=== PATIENT | female | born 1950 | race Caucasian/White ===

== ENCOUNTER → 2017-10-27 | Outpatient (CLI) | payer MEDICARE ==
[~2017-10-27] MED LIST: ASPIRIN 81M81 MG/TA2 PO; BETIMOL 0.5% OPH5 ML OP; CALCIUM600 M1 PO; COUMADIN 1MG1 MG/TAB PO; FOLIC ACID 11 MG/TA1 PO; FOSAMAX 35MG35 MG PO; HUMIRA40 MG/0.1 SC; LASIX 20MG TABL20 MG PO; LIPITOR20 MG PO; LOVENOX 3030 MG/0.3 SQ; METHOTREXA2.5 MG/TAB PO; MOTRIN 800800 MG/TAB PO; PREVACID SOLUTA30 M2 PO; TENORMIN 2525 MG/TAB PO; XALATAN EYE DROPS OU
== END ==
LOC: MHCPAIN 12:50
DX: G89.29 Other chronic pain (principal); M47.27 Other spondylosis with radiculopathy, lumbosacral region; M53.3 Sacrococcygeal disorders, not elsewhere classified; M41.9 Scoliosis, unspecified; F17.210 Nicotine dependence, cigarettes, uncomplicated
CPT/HCPCS: G0463

== ENCOUNTER → 2018-02-01 | Outpatient (CLI) | payer MEDICARE | LOC: MHCPAIN 13:54 | DX: G89.29 Other chronic pain (principal); M47.817 Spondylosis without myelopathy or radiculopathy, lumbosacral region; M41.9 Scoliosis, unspecified | CPT/HCPCS: G0463 ==

== ENCOUNTER 2022-01-28 11:46 | Inpatient (IN) | payer MEDICARE ==
[2022-01-28] VITALS (358 sets, daily range): BP systolic 99–154; BP diastolic 41–67; PULSE 68–85; TEMP 97.5–98.5; O2SAT 76–100
[~2022-01-28] VITALS: Ht 147.3 cm; Wt 47.6 kg
[2022-01-28 13:20] LABS: COLLECTION METHOD CLEAN CATCH
[2022-01-28 13:23] LABS: MEAN CELL VOLUME 90 fl (80.0-100.0); MEAN CORPUSCULAR HGB CONC 30 g/dl (33.0-37.0); MEAN PLATELET VOLUME 10.5 fl (7.4-10.4); PLATELET COUNT 299 K/mm3 (130-400); RED BLOOD COUNT 2.14 M/mm3 (4.10-5.30); REDCELL DISTRIBUTION WIDTH-CV 15.9 % (11.5-14.5)
[2022-01-28 13:30] LABS: HEMATOCRIT 19.2 % (37.0-47.0); MEAN CORPUSCULAR HEMOGLOBIN 27 pg (27-31)
[2022-01-28 13:31] LABS: HEMOGLOBIN 5.8 g/dl (12.5-16.0)
[2022-01-28 13:32] LABS: MUCOUS Present (NOT PRESENT); PH 7 (5-8); SQUAMOUS EPITHELIAL 0-2 /hpf (0-10); URINE APPEARANCE Hazy (CLEAR/HAZY); URINE BACTERIA Rare /hpf (NONE SEEN); URINE BILIRUBIN Negative (NEGATIVE); URINE BLOOD 2+ (NEGATIVE); URINE COLOR Yellow (YELLOW); URINE GLUCOSE Negative (NEGATIVE); URINE KETONE Negative (NEGATIVE); URINE LEUKOCYTE ESTERASE 3+ (NEGATIVE); URINE NITRATE Negative (NEGATIVE); URINE PROTEIN(semi-quant) Negative (NEGATIVE); URINE RBC None Seen /hpf (0-2); URINE UROBILINOGEN Negative (NEGATIVE)
[2022-01-28 13:39] LABS: BILIRUBIN,TOTAL 0.7 mg/dL (0.2-1.2); C-REACTIVE PROTEIN 0.76 mg/dL (0.00-0.50); CALCIUM 8.8 mg/dL (8.4-10.2); CREATININE, serum 1.01 mg/dL (0.57-1.11); POTASSIUM 4.3 mmol/L (3.5-4.5); PROTHROMBIN TIME 81.4 SECONDS (9.7-12.8); TOTAL PROTEIN 6.3 gm/dL (6.2-8.1)
[2022-01-28 13:40] LABS: INR 7.2 (0.8-3.0)
[2022-01-28 13:49] LABS: BAND 3 % (0-10); EOSINOPHIL 4 % (0-4); HYPOCHROMIA 3+; LYMPHOCYTE 14 % (20.0-51.0); METAMYELOCYTE 1 % (0-0); NEUTROPHILS 73 % (42.0-75.2)
[2022-01-28 13:50] LABS: MICROCYTOSIS 1+; PLATELET ESTIMATE NORMAL (NORMAL); SCHISTOCYTES 1+
--- NOTE | 2022-01-28 17:00 | NUR ---
PT ARRIVES TO ICU6 AT THIS TIME FROM ED VIA BED. PT CURRENTLY HAS BLOOD TRANSFUSING AT THIS TIME. PICC LINE TO RIGHT UPPER ARM. FC INSERTED. PT ALERT AND ORIENTED. VERY HARD OF HEARING. STATES SHE DOES NOT HAVE ANY PAIN AT THIS TIME.
[2022-01-28] MEDS ORDERED: CARAFATE 1GM1 G PO (17:16)
[2022-01-28] MEDS ORDERED: NORVASC 5MG5 MG/TAB PO (17:17)
[2022-01-28] MEDS ORDERED: FOLIC ACID 11 MG/TA1 PO (17:17)
[2022-01-28] MEDS ORDERED: LASIX 20MG TABL20 MG PO (17:18)
[2022-01-28] MEDS ORDERED: LANOXIN 0.120.125 MG PO (17:19)
[2022-01-28] MEDS ORDERED: PRILOTC PO (17:20)
[2022-01-28] MEDS ORDERED: PRILOTC (17:21)
[2022-01-28] MEDS ORDERED: RINVOQ ER15 MG PO (17:22)
[2022-01-28] MEDS ORDERED: COMBIGAN 0.2%-0.5 ML OU ×2 (17:24→17:25)
[2022-01-28] MEDS ORDERED: SYSTANE 0.3-0.1 EACH OP (17:26)
[2022-01-28] MEDS ORDERED: PREDNISONE 5MG5 MG PO (17:27)
[2022-01-28 20:13] LABS: HEMATOCRIT 24.1 % (37.0-47.0); HEMOGLOBIN 7.4 g/dl (12.5-16.0)
--- NOTE | 2022-01-28 20:14 | NUR ---
Patient's caregiver Lucrecia called for update, verified with patient this was ok to give her also verified with patient that she was ok with giving animal caretaker 4 digit code, patient stated yes to both.
[2022-01-29] VITALS (1335 sets, daily range): BP systolic 114–154; BP diastolic 46–72; PULSE 61–84; TEMP 97.4–98; O2SAT 49–100
[2022-01-29 01:25] LABS: HEMATOCRIT 30.4 % (37.0-47.0)
[2022-01-29 01:26] LABS: HEMOGLOBIN 9.5 g/dl (12.5-16.0)
[2022-01-29 06:09] LABS: HEMATOCRIT 31.6 % (37.0-47.0); HEMOGLOBIN 9.8 g/dl (12.5-16.0)
[2022-01-29 06:21] LABS: PROTHROMBIN TIME 11.5 SECONDS (9.7-12.8)
[2022-01-29 06:37] LABS: CALCIUM 7.8 mg/dL (8.4-10.2); CREATININE, serum 0.73 mg/dL (0.57-1.11); POTASSIUM 4.2 mmol/L (3.5-4.5)
--- NOTE | 2022-01-29 09:53 | NUR ---
DINORA and DINORA valderrama met with the patient and her caregiver/roommate, Lucrecia Shelton (ph#[phone]), to discuss discharge plan. The patient lives in [place] with Lucrecia. Lucrecia has been taking care of the patient for 16 years. Lucrecia states that the patient needs some assistance with bathing and that she has a cane, walker, wheelchair, and has a home [employer] for oxygen. She primarily uses the walker and Lucrecia states that she assists the patient with bathing. The patient's PCP is Dr. Carmine Kemp and she receives her medications from [facility] in [place]. The patient does not have a DPOA-HC, but the patient states that she would like to complete one while here. The patient verbalized that a DPOA-HC means a person will make decisions for her when she cannot. She verbalized that she wants to designate both her son, Edgard, and caregiver, Lucrecia. She states that she wants them to have to "argue it about her care". Lucrecia used to date Edgard. DINORA and Evaristo, DINORA student, witnessed the patient's signature. DINORA valderrama provided the patient with the original and some copies. DINORA placed a copy in the patient's chart. DINORA placed a copy in the patient's chart. DINORA inquired if the patient has any home health services. Lucrecia states that the patient does not right now, but she would be interested in getting services started back up upon discharge. She states that the patient used to have [facility] and they really like them. DINORA contacted and faxed a referral to Arnaldo at [facility]. Arnaldo states that they do not have OT at this time. Awaiting screen. DINORA contacted the patient's son, Edgard, to review and update him on the above. Edgard states that he will be up to the hospital later today. *Discharge plan: home with caregiver and home health*
--- NOTE | 2022-01-29 10:33 | NUR ---
PATIENT LAYING IN BED THIS MORNING. ONLY COMPLAINT IS SHE IS THIRST AND HUNGRY. PATIENT UNDERSTANDS NEED FOR NPO UNTIL AFTER EGD. PTS SON INTO VISIT AND MAKES PATEINT UPSET. PT SAYS SHE FEELS LIKE SHE HAD CHEST PAIN BUT WHEN SON LEFT IT WENT AWAY. PATIENT UNDERSTANDS NEEDING TO TELL THIS RN IF THE PAIN REOCCURS. PT IS EXTREMELY HARD OF HEARING. KIMBERLI, PT HAMMERSMITH HELPER, BROUGHT IN PATIENTS LEFT HEARING AID. PT IS NOW WEARING HEARING AIDS BIALETERAL AND DOES SEEM TO HEAR AND UNDERSTAND CONVERSATION EASIER.
[2022-01-29] MEDS ORDERED: FLEXERIL 1010 MG/TAB PO (11:36)
[2022-01-29] MEDS ORDERED: CALCIUM 600 MG1 EAC2 PO (11:39)
[2022-01-29] MEDS ORDERED: MURO 128 5% OPH15 ML OP (11:40)
[2022-01-29] MEDS ORDERED: K-DUR20 MEQ PO (11:41)
[2022-01-29] MEDS ORDERED: PROLIA60 MG/ML SQ (11:43)
--- NOTE | 2022-01-29 12:42 | NUR ---
The patient's son, Edgard, arrived to the hospital. DINORA met with Edgard and updated him on the patient's plan to return home with her caregiver and home health. Edgard in agreement to the plan. He states that there are times that the patient is at home alone when Lucrecia goes out and he is concerned for her during those times. DINORA encouraged Edgard to talk to the patient and Lucrecia to come up with a schedule on when Lucrecia would be gone. Edgard states that he lives right next door to the patient and could stay with her when Lucrecia is gone. DINORA informed him that when Lucrecia cannot be at home, there is the option of paying for private duty caregivers as well. Edgard verbalized understanding. Egdard was interested in getting the patient a life alert. DINORA provided him with a couple brochures to for life alerts. [facility] states that they are able to accept the patient for services.
[2022-01-30] VITALS (1316 sets, daily range): BP systolic 101–196; BP diastolic 44–85; PULSE 63–97; TEMP 97.5–99; O2SAT 60–100
[2022-01-30 04:49] LABS: MEAN CELL VOLUME 91 fl (80.0-100.0); MEAN CORPUSCULAR HGB CONC 31 g/dl (33.0-37.0); MEAN PLATELET VOLUME 10.7 fl (7.4-10.4); RED BLOOD COUNT 3.44 M/mm3 (4.10-5.30); REDCELL DISTRIBUTION WIDTH-CV 16.9 % (11.5-14.5)
[2022-01-30 04:51] LABS: HEMATOCRIT 31.4 % (37.0-47.0); HEMOGLOBIN 9.6 g/dl (12.5-16.0); MEAN CORPUSCULAR HEMOGLOBIN 28 pg (27-31); PLATELET COUNT 196 K/mm3 (130-400)
[2022-01-30 04:59] LABS: CALCIUM 7.6 mg/dL (8.4-10.2); CREATININE, serum 0.76 mg/dL (0.57-1.11); POTASSIUM 4.2 mmol/L (3.5-4.5)
[2022-01-30 05:06] LABS: PROTHROMBIN TIME 11.4 SECONDS (9.7-12.8)
[2022-01-30 05:31] LABS: BAND 5 % (0-10); EOSINOPHIL 1 % (0-4); NEUTROPHILS 93 % (42.0-75.2); NUCLEATED RED BLOOD CELL 1 (0-6)
[2022-01-30 05:32] LABS: PLATELET ESTIMATE NORMAL (NORMAL)
[2022-01-30 05:34] LABS: ANISOCYTOSIS 2+; STOMATOCYTE 1+
[2022-01-30 05:35] LABS: HYPOCHROMIA 1+
--- NOTE | 2022-01-30 08:56 | NUR ---
PT GOING DOWN TO NUC MED FOR CA SCAN.
--- NOTE | 2022-01-30 09:15 | NUR ---
CODE CALLED IN NUC MED FOR RESPIRATORY DISTRESS. 0918 BEDSIDE. BP ELEVATED IN THE 200'S. 0936 PT BACK TO ICU 6, BEING BAGGED BY RT. 0935 MEDS GIVEN FOR INTUBATION 0939 PT INTUBATED WITHA 7.5 TUBE AND 20 AT THE TEETH 0945 OG TUBE PLACED AT 65 AT THE TEETH. BEDSIDE. XRAY DONE 0949 SEDATION STARTED 0951 RESTRAINTS APPLIED 1015 ET PULLED BACK TO 19, CHEST XRAY REPEATED. BEDSIDE. 1030 BP ELEAVTED IN THE 190'S. SEDATION INCREASED PER .
[2022-01-30 09:41] LABS: HEMOGLOBIN 10.6 g/dl (12.5-16.0); MEAN CELL VOLUME 92 fl (80.0-100.0); MEAN CORPUSCULAR HEMOGLOBIN 28 pg (27-31); MEAN CORPUSCULAR HGB CONC 30 g/dl (33.0-37.0); MEAN PLATELET VOLUME 10.4 fl (7.4-10.4); PLATELET COUNT 200 K/mm3 (130-400); RED BLOOD COUNT 3.83 M/mm3 (4.10-5.30); REDCELL DISTRIBUTION WIDTH-CV 17.2 % (11.5-14.5)
[2022-01-30 09:49] LABS: HEMATOCRIT 35.3 % (37.0-47.0)
[2022-01-30 09:57] LABS: ALBUMIN 2.7 gm/dL (3.4-4.8); BILIRUBIN,TOTAL 0.6 mg/dL (0.2-1.2); CALCIUM 7.8 mg/dL (8.4-10.2); CREATININE, serum 0.87 mg/dL (0.57-1.11); POTASSIUM 4.4 mmol/L (3.5-4.5); TOTAL PROTEIN 6.2 gm/dL (6.2-8.1)
[2022-01-30 10:11] LABS: BAND 2 % (0-10); NEUTROPHILS 93 % (42.0-75.2)
[2022-01-30 10:12] LABS: ANISOCYTOSIS 1+; HYPOCHROMIA 3+; PLATELET ESTIMATE NORMAL (NORMAL); SCHISTOCYTES 1+
--- NOTE | 2022-01-30 10:28 | NUR ---
The patient became unresponsive during a stress test this morning. She is now intubated and on the vent. The son was notified. SW to continue to follow.
[2022-01-30 10:59] LABS: ARTERIAL BLD GAS O2 SATURATION 99.6 % (92-100); ARTERIAL BLD GAS TCO2 CT 30.6; ARTERIAL BLOOD GAS BASE EXCESS 6.4 (-2-2); ARTERIAL BLOOD GAS HCO3 29.4 meq/L (22-26); ARTERIAL BLOOD GAS PCO2 36.3 mmHg (35-45); ARTERIAL BLOOD GAS pH 7.53 (7.35-7.45)
[2022-01-30 11:01] LABS: ARTERIAL BLOOD GAS PO2 320.9 mmHg (80-100)
--- NOTE | 2022-01-30 12:11 | NUR ---
NOTIFIED UNABLE TO RUN ALL SEDATION ON MRI PUMP. UNBLE TO DO MRI TODAY. WILL ALSO NOTIFY .
--- NOTE | 2022-01-30 12:35 | NUR ---
MESSAGE LEFT FOR AT HIS OFFICE AND CELL PHONE REGARDING CONSULT.
[2022-01-30 16:14] LABS: ARTERIAL BLD GAS O2 SATURATION 97.5 % (92-100); ARTERIAL BLD GAS TCO2 CT 32.9; ARTERIAL BLOOD GAS BASE EXCESS 8.7 (-2-2); ARTERIAL BLOOD GAS HCO3 31.7 meq/L (22-26); ARTERIAL BLOOD GAS PCO2 37.6 mmHg (35-45); ARTERIAL BLOOD GAS PO2 79.6 mmHg (80-100); ARTERIAL BLOOD GAS pH 7.54 (7.35-7.45)
--- NOTE | 2022-01-30 17:20 | NUR ---
NO SEDATION VACATION AT THIS TIME. PT INTUBATED THIS AM. PT OPENS EYES TO TOUCH. PT MOVES ALL EXTREMETIES. PT BECOMES HYPERTENSIVE AND HAS INCREASED PEAK PRESSURES WHEN SEDATION IS LOWERED. WILL CONTINUE TO MONITOR.
[2022-01-31] VITALS (1004 sets, daily range): BP systolic 126–175; BP diastolic 53–70; PULSE 58–77; TEMP 98.2–99.5; O2SAT 96–100
[2022-01-31 03:22] LABS: ARTERIAL BLD GAS O2 SATURATION 96.8 % (92-100); ARTERIAL BLD GAS TCO2 CT 33.4; ARTERIAL BLOOD GAS BASE EXCESS 9.2 (-2-2); ARTERIAL BLOOD GAS HCO3 32.2 meq/L (22-26); ARTERIAL BLOOD GAS PCO2 37.4 mmHg (35-45); ARTERIAL BLOOD GAS PO2 77.8 mmHg (80-100); ARTERIAL BLOOD GAS pH 7.55 (7.35-7.45)
--- NOTE | 2022-01-31 05:00 | NUR ---
SEDATION VACATION NOT PREFORMED DUE TO LESS THAN 24 HOURS SINCE INTUBATION TOLERATING VENT SETTING AND SEDATION AT THIS TIME WITHOUT DIFFICULTY. OPENS EYES TO VERBAL STIMULI, WITHDRAWS EXTREMITIES TO PAIN DOES NOT ATTEMPT TO MOVE SPONTANEOUSLY OR FOLLOW COMMANDS AT THIS TIME
[2022-01-31 05:57] LABS: MEAN CELL VOLUME 88 fl (80.0-100.0); MEAN CORPUSCULAR HGB CONC 32 g/dl (33.0-37.0); MEAN PLATELET VOLUME 11.2 fl (7.4-10.4); PLATELET COUNT 159 K/mm3 (130-400); RED BLOOD COUNT 3.09 M/mm3 (4.10-5.30); REDCELL DISTRIBUTION WIDTH-CV 16.4 % (11.5-14.5)
[2022-01-31 06:15] LABS: BILIRUBIN,TOTAL 0.8 mg/dL (0.2-1.2); CREATININE, serum 0.74 mg/dL (0.57-1.11); TOTAL PROTEIN 4.9 gm/dL (6.2-8.1)
[2022-01-31 06:17] LABS: HEMATOCRIT 27.1 % (37.0-47.0); MEAN CORPUSCULAR HEMOGLOBIN 28 pg (27-31); POTASSIUM 2.9 mmol/L (3.5-4.5)
[2022-01-31 06:18] LABS: HEMOGLOBIN 8.6 g/dl (12.5-16.0)
--- NOTE | 2022-01-31 07:00 | NUR ---
RECEIVED REPORT FROM SARAH CHUNG. PT RESTING ON VENT SETTINGS: AC, TV 350, PEEP 5, RR 15, 30%. FC PATENT AND DRAINING TO GRAVITY. OGT TO LIS. CORE DRILLER HELPER IN PLACE. VSS. SEE IV GTT FLOWSHEET.
[2022-01-31 07:10] LABS: NEUTROPHILS 80 % (42.0-75.2); NUCLEATED RED BLOOD CELL 1 (0-6); PLATELET ESTIMATE NORMAL (NORMAL)
[2022-01-31 07:11] LABS: BAND 17 % (0-10); LYMPHOCYTE 1 % (20.0-51.0)
[2022-01-31 07:12] LABS: MEAN CELL VOLUME 87 fl (80.0-100.0); MEAN CORPUSCULAR HGB CONC 31 g/dl (33.0-37.0); MEAN PLATELET VOLUME 11.4 fl (7.4-10.4); PLATELET COUNT 167 K/mm3 (130-400); RED BLOOD COUNT 3.19 M/mm3 (4.10-5.30); REDCELL DISTRIBUTION WIDTH-CV 16.4 % (11.5-14.5)
[2022-01-31 07:14] LABS: ANISOCYTOSIS 2+; HYPOCHROMIA 2+
[2022-01-31 07:24] LABS: HEMATOCRIT 27.7 % (37.0-47.0); HEMOGLOBIN 8.7 g/dl (12.5-16.0); MEAN CORPUSCULAR HEMOGLOBIN 27 pg (27-31)
[2022-01-31 07:29] LABS: CALCIUM 7.2 mg/dL (8.4-10.2); CREATININE, serum 0.76 mg/dL (0.57-1.11)
[2022-01-31 07:41] LABS: POTASSIUM 2.9 mmol/L (3.5-4.5)
[2022-01-31 08:25] LABS: BAND 8 % (0-10); LYMPHOCYTE 1 % (20.0-51.0); NEUTROPHILS 89 % (42.0-75.2)
[2022-01-31 08:26] LABS: ANISOCYTOSIS 1+; HYPOCHROMIA 1+; PLATELET ESTIMATE NORMAL (NORMAL)
--- NOTE | 2022-01-31 10:20 | NUR ---
GETTING READY TO GO TO MRI.RETURNED TO ICU 1130. PT JOAN TRANSFER AND PROCEDURE VERY WELL W/O INCIDENT. BACK ON VENT AT PREVIOUS SETTINGS.
--- NOTE | 2022-01-31 11:40 | NUR ---
PT TAKEN TO MRI FROM [id number] WITH THIS RN AND RT ACCOMPANYING PT. PT TOLERATED WELL. PT ON CARDIAC CONTINUOUS PORTABLE MONITOR DURING THIS TIME.
--- NOTE | 2022-01-31 16:01 | NUR ---
TF STARTED AT 10 ML/HR AT THIS TIME PER ORDERS.
--- NOTE | 2022-01-31 17:21 | NUR ---
PT WAKES UP TO SPEECH AND LOOKS AROUND BUT IS ABLE TO FALL BACK TO SLEEP EASILY.
--- NOTE | 2022-01-31 21:07 | NUR ---
NEW BAG OF FENTANYL HUNG AT 2046. TUBING CHANGED WITH NEW BAG. MEDICATION IN THE ORIGINAL TUBING WAS MEASURED AND WASTED WITH SECOND RN (JULIET WINSLOW). 9ML OF FENTANYL DISPOSED OF APPROPRIATELY. UNABLE TO DOCUMENT WASTE IN PYXIS.
[2022-02-01] VITALS (1241 sets, daily range): BP systolic 104–160; BP diastolic 45–67; PULSE 54–76; TEMP 97.8–98.5; O2SAT 92–100
[2022-02-01 04:52] LABS: MEAN CELL VOLUME 87 fl (80.0-100.0); MEAN CORPUSCULAR HGB CONC 32 g/dl (33.0-37.0); MEAN PLATELET VOLUME 11.5 fl (7.4-10.4); PLATELET COUNT 169 K/mm3 (130-400); RED BLOOD COUNT 3.44 M/mm3 (4.10-5.30); REDCELL DISTRIBUTION WIDTH-CV 16.5 % (11.5-14.5)
[2022-02-01 04:55] LABS: HEMATOCRIT 29.8 % (37.0-47.0); HEMOGLOBIN 9.5 g/dl (12.5-16.0); MEAN CORPUSCULAR HEMOGLOBIN 28 pg (27-31)
[2022-02-01 05:12] LABS: INR 1.1 (0.8-3.0); PROTHROMBIN TIME 12.2 SECONDS (9.7-12.8)
[2022-02-01 05:16] LABS: ALBUMIN 2.2 gm/dL (3.4-4.8); BILIRUBIN,TOTAL 0.7 mg/dL (0.2-1.2); CALCIUM 7.1 mg/dL (8.4-10.2); CREATININE, serum 0.77 mg/dL (0.57-1.11); MAGNESIUM 2.1 mg/dL (1.6-2.6); TOTAL PROTEIN 5.4 gm/dL (6.2-8.1)
[2022-02-01 05:18] LABS: ARTERIAL BLD GAS O2 SATURATION 97.7 % (92-100); ARTERIAL BLD GAS TCO2 CT 31.2; ARTERIAL BLOOD GAS BASE EXCESS 6.4 (-2-2); ARTERIAL BLOOD GAS PCO2 39.1 mmHg (35-45); ARTERIAL BLOOD GAS PO2 98.2 mmHg (80-100)
[2022-02-01 05:18] LABS: ANISOCYTOSIS 2+; BAND 4 % (0-10); HYPOCHROMIA 1+; LYMPHOCYTE 2 % (20.0-51.0); NEUTROPHILS 93 % (42.0-75.2); PLATELET ESTIMATE NORMAL (NORMAL)
--- NOTE | 2022-02-01 08:00 | NUR ---
PT has been further decreased on sedation from medical assistant prn's sedation vacation. PT is alert, appears to be a little aggitated but is calmed with reassurance. PT follows commands such as squeezing my hand when asked and lifting feet off of bed when asked. Will start weaning trial with RT.
--- NOTE | 2022-02-01 09:15 | NUR ---
PT is awake and alert, but fails to take SPONT breathes when placed on SPONT mode. PT is encouraged to breathe slowly and deeply. PT has a high RESP rate alarm and only pulls TV of 150-200. PT placed back on AC mode and sedation completely turned off.
--- NOTE | 2022-02-01 10:00 | NUR ---
PT has been on STBY with sedation for about an hour. PT is easily aggitated, and appears to be worried. PT placed on SPONT mode again, but even with coaching and encouragment PT will not take SPONT beathes. This nurse, physician, and RT concluded that this was a failed weaning trial, and PT is placed back on sedation for comfort. Will try weaning trial again tomorrow.
[2022-02-01 10:23] LABS: PARTIAL THROMBOPLASTIN TIME 23.6 SECONDS (26.0-37.0)
--- NOTE | 2022-02-01 11:05 | NUR ---
SPON BREATHING TRIAL TRIED TWICE THIS AM W/0 SUCCESS. PT NOT ABLE TO BREATHE ON HER OWN. APPEARS TO BE AWAKE AND ALERT BUT WOULD NOT TAKE SPONT BREATHS. UNCERTAIN IF PT ABLE TO COMPREHEND EVEN THOUGH SHE MADE EYE CONTACT. PLACED BACK ON ACVC+ AT CURRENT SETTINGS.
--- NOTE | 2022-02-01 16:24 | NUR ---
TF BAG CHANGED-
--- NOTE | 2022-02-01 17:00 | NUR ---
Critical lab HepXa >1. Heparin has been stopped per protocol for 2 hours with a repeat HepXa, PTT ordered at 1900. Will follow protocol for Heparin restart.
--- NOTE | 2022-02-01 19:12 | NUR ---
PT had a moment of PSVT rate 150s that lasted short than 6 seconds.
[2022-02-01 19:34] LABS: PARTIAL THROMBOPLASTIN TIME 46.5 SECONDS (26.0-37.0)
--- NOTE | 2022-02-01 20:00 | NUR ---
HEPARIN XA RESULTS RETURNED AT THIS TIME, DRIP RESTARTED AND RATE ADJUSTED PER PROTOCOL NEXT XA IN 6 HOURS.
--- NOTE | 2022-02-01 20:45 | NUR ---
PATIENT RESTLESS ATTEMPTING TO SIT UP IN BED AND REACH FOR ET TUBE, PATIENT REPOSITIONED WITHOUT RELIEF OF RESTLESSNESS, INCREASE OF SEDATION MEDICATIONS AT THIS TIME
[2022-02-02] VITALS (1400 sets, daily range): BP systolic 116–160; BP diastolic 52–74; PULSE 56–92; TEMP 97.6–98.2; O2SAT 63–100
[2022-02-02 02:26] LABS: MEAN CELL VOLUME 91 fl (80.0-100.0); MEAN CORPUSCULAR HGB CONC 31 g/dl (33.0-37.0); MEAN PLATELET VOLUME 11.7 fl (7.4-10.4); PLATELET COUNT 152 K/mm3 (130-400); RED BLOOD COUNT 3.08 M/mm3 (4.10-5.30)
[2022-02-02 02:29] LABS: HEMOGLOBIN 8.6 g/dl (12.5-16.0); MEAN CORPUSCULAR HEMOGLOBIN 28 pg (27-31)
[2022-02-02 02:38] LABS: ANISOCYTOSIS 1+; BAND 11 % (0-10); HYPOCHROMIA 3+; NEUTROPHILS 86 % (42.0-75.2); NUCLEATED RED BLOOD CELL 1 (0-6); PLATELET ESTIMATE NORMAL (NORMAL)
[2022-02-02 02:39] LABS: SCHISTOCYTES 1+
[2022-02-02 02:43] LABS: ALBUMIN 2.1 gm/dL (3.4-4.8); BILIRUBIN,TOTAL 0.6 mg/dL (0.2-1.2); CALCIUM 7.1 mg/dL (8.4-10.2); CREATININE, serum 0.72 mg/dL (0.57-1.11); MAGNESIUM 2.3 mg/dL (1.6-2.6); PHOSPHOROUS 2.1 mg/dL (2.3-4.7); POTASSIUM 3.3 mmol/L (3.5-4.5); TOTAL PROTEIN 5.2 gm/dL (6.2-8.1)
--- NOTE | 2022-02-02 04:00 | NUR ---
SEDATION DECREASED AT THIS TIME IN PREPERATION FOR SEDATION VACATION AND WEANING TRIAL LATER ON THIS MORNING
[2022-02-02 05:00] LABS: ARTERIAL BLD GAS O2 SATURATION 97.1 % (92-100); ARTERIAL BLD GAS TCO2 CT 28.8; ARTERIAL BLOOD GAS BASE EXCESS 1.5 (-2-2); ARTERIAL BLOOD GAS HCO3 27.3 meq/L (22-26); ARTERIAL BLOOD GAS PCO2 48.8 mmHg (35-45); ARTERIAL BLOOD GAS PO2 90.7 mmHg (80-100); ARTERIAL BLOOD GAS pH 7.37 (7.35-7.45)
--- NOTE | 2022-02-02 08:00 | NUR ---
PT sedation on standby in prep for weaning trial and possible extubation.
--- NOTE | 2022-02-02 08:40 | NUR ---
Weaning trial started. RT GOODEN AND DR. HARDY bedside. PT is breathing on her own, TV >340 RR 14 SATS 100% ON 30 % FIO2. PT is still sleepy but easy to arouse.
--- NOTE | 2022-02-02 10:19 | NUR ---
At this time, this nurse and RT veronica were instructed per Dr. White to extubate. PT has been off all sedation since 0800, and tube feeding has been stopped. PT follows all commands. During extubation, oxymask 4 LPM prepared as long with suction and BVM. RT veronica removed sabrina and deflated 5 ml of air from ETT. PT was instructed to take a deep breath and blow it out while RT Veronica removed tube and OG at the same time. PT said " Thank you".
--- NOTE | 2022-02-02 10:25 | NUR ---
The patient was extubated today. SW to continue to monitor.
--- NOTE | 2022-02-02 10:58 | NUR ---
PT EXTUBATED W/O ISSUE. PT IS DOIND WELL ON 4L OM. WILL CONTINUE TO MONITOR
--- NOTE | 2022-02-02 11:51 | NUR ---
PT needs frequent reorientation.
--- NOTE | 2022-02-02 13:55 | NUR ---
As the day progresses the PT is becoming more alert.
--- NOTE | 2022-02-02 14:29 | NUR ---
Advanced diet to clear liquids- PT is doing well with swollowing, and if needed, has a productive hard cough.
--- NOTE | 2022-02-02 19:41 | NUR ---
COMPLETED GLUCOSE CHECK- PT NO LONGER ON TF
[2022-02-03] VITALS (997 sets, daily range): BP systolic 126–159; BP diastolic 42–72; PULSE 50–77; TEMP 97.1–98.6; O2SAT 81–100
[2022-02-03 02:30] LABS: MEAN CELL VOLUME 92 fl (80.0-100.0); MEAN CORPUSCULAR HGB CONC 30 g/dl (33.0-37.0); MEAN PLATELET VOLUME 11.2 fl (7.4-10.4); PLATELET COUNT 173 K/mm3 (130-400); RED BLOOD COUNT 3.26 M/mm3 (4.10-5.30)
[2022-02-03 02:37] LABS: HEMATOCRIT 29.9 % (37.0-47.0); MEAN CORPUSCULAR HEMOGLOBIN 28 pg (27-31)
[2022-02-03 02:45] LABS: ALBUMIN 2.4 gm/dL (3.4-4.8); BAND 9 % (0-10); BILIRUBIN,TOTAL 0.5 mg/dL (0.2-1.2); CALCIUM 7.3 mg/dL (8.4-10.2); CREATININE, serum 0.77 mg/dL (0.57-1.11); LYMPHOCYTE 3 % (20.0-51.0); MAGNESIUM 2.3 mg/dL (1.6-2.6); METAMYELOCYTE 1 % (0-0); NEUTROPHILS 84 % (42.0-75.2); NUCLEATED RED BLOOD CELL 2 (0-6); POTASSIUM 3.9 mmol/L (3.5-4.5); TOTAL PROTEIN 5.6 gm/dL (6.2-8.1)
[2022-02-03 02:46] LABS: ANISOCYTOSIS 1+; HYPOCHROMIA 1+; PLATELET ESTIMATE NORMAL (NORMAL)
--- NOTE | 2022-02-03 06:40 | NUR ---
RESTED WELL THIS SHIFT, TOLERATED ALL INTERVENTIONS, OXYGEN SAATURATIONS MAINTAINED IN THE HIGH 90'S AFTER O2 PLACE VIA NC, ABLE TO TAKE PO MEDICATION IN PUDDING THIS AM WITHOUT DIFFICULTY, DIET ADVANCED TO MECHANICAL SOFT, PATIENT CURRENTLY FINISHING PUDDING BY HERSELF WITHOUT DIFFICULTIES
--- NOTE | 2022-02-03 08:10 | NUR ---
REPORT RECEIVED FROM SARAH CHUNG; PATIENT DID WELL OVERNIGHT AND THIS MORNING IS RESTING COMFORTABLY IN BED.
--- NOTE | 2022-02-03 09:27 | NUR ---
Initial visit; Patient thanked Exceptional Children Teacher for looking in on her, listening and offering prayer and God's blessings. Patient having trouble talking but said Exceptional Children Teacher lifted her morale. Exceptional Children Teacher thanked patient.
--- NOTE | 2022-02-03 13:35 | NUR ---
PATIENT SEEMS TO BE HAVING MORE DIFFICULTY SWALLOWING TODAY; SPEECH WAS CONSULTED THIS MORNING PER DR. COOPER'S ORDERS BUT FOR SPEECH EVALUATION. THIS NURSE CALLED SPEECH THERAPY TO EXPRESS CONCERNS THAT SHE WAS NOT SWALLOWING PROPERLY AND THEY STATED THAT THEY WOULD ALSO DO A SWALLOW STUDY WITH THEIR SPEECH ASSESSMENT. OF THIS TIME, THEY HAVE NOT BEEN TO SEE THE PATIENT AND THIS NURSE IS NOT COMFORTABLE GIVING THE PATIENT FOOD AND HELD LUNCH.
--- NOTE | 2022-02-03 17:48 | NUR ---
To room 324 via wheelchair from ICU.
--- NOTE | 2022-02-03 20:34 | NUR ---
PT IN BED, SLOW SPEECH, ORIENTED X3. HAS HAD 3 LOOSE STOOLS SINCE ARRIVAL TO ROOM 324 FROM ICU. HAS RT PICC WITH HEPARIN GTT AT 4.5CC/HR AND ZOSYN INFUSING WITHOUT PROBLEM. PT HAS EXCORIATED XIOMARA AREA WITH LESIONS TO LABIA. MÉNDEZ TO BSD, CARES PROVIDED. BED ALARM ON.
--- NOTE | 2022-02-04 03:37 | NUR ---
PT INC OF LARGE BROWN LIQUID STOOL, REPOSITIONED TO RT SIDE AFTER XIOMARA CARES PROVIDED. BARRIER CREAM APPLIED TO BUTTOCKS.
[2022-02-04 03:43] VITALS: BP 116/39; PULSE 60; TEMP 98.6
[2022-02-04 06:46] LABS: MEAN CELL VOLUME 91 fl (80.0-100.0); MEAN CORPUSCULAR HGB CONC 30 g/dl (33.0-37.0); PLATELET COUNT 173 K/mm3 (130-400); RED BLOOD COUNT 3.14 M/mm3 (4.10-5.30)
[2022-02-04 06:50] LABS: HEMATOCRIT 28.7 % (37.0-47.0); HEMOGLOBIN 8.6 g/dl (12.5-16.0); MEAN CORPUSCULAR HEMOGLOBIN 27 pg (27-31)
[2022-02-04 06:53] LABS: INR 1.3 (0.8-3.0); PROTHROMBIN TIME 14.6 SECONDS (9.7-12.8)
[2022-02-04 06:56] LABS: ALBUMIN 2.3 gm/dL (3.4-4.8); BILIRUBIN,TOTAL 0.4 mg/dL (0.2-1.2); CALCIUM 7.2 mg/dL (8.4-10.2); CREATININE, serum 0.73 mg/dL (0.57-1.11); MAGNESIUM 2.4 mg/dL (1.6-2.6); POTASSIUM 3.9 mmol/L (3.5-4.5); TOTAL PROTEIN 5.3 gm/dL (6.2-8.1)
[2022-02-04 07:21] LABS: HYPOCHROMIA 1+; LYMPHOCYTE 4 % (20.0-51.0); NEUTROPHILS 95 % (42.0-75.2); NUCLEATED RED BLOOD CELL 4 (0-6); OVALOCYTES 1+; TARGET CELLS 1+
[2022-02-04 07:22] LABS: TEAR DROP CELLS 1+
[2022-02-04 07:31] VITALS: BP 138/46; PULSE 59; TEMP 97.3
--- NOTE | 2022-02-04 08:06 | NUR ---
PT INCONTINENT OF BOWEL. PERICATE PROVIDED. MEPILEX PLACED OVER EXCORIATED SKIN DIME SIZE OPEN AREA. SEVERAL LESIONS TO LABIA AND XIOMARA AREA ALSO NOTED. APPLIED BARRIOR CREAM AFTER EXTENSIVE XIOMARA CARE. PT SITTING UP IN BED EATING BREAKFAST.
--- NOTE | 2022-02-04 09:46 | NUR ---
PT HAD LG INCONTINENT STOOL. COMPLETE BED CHANGE AND BED BATH PROVIDED. PT DENIES PAIN OR NEEDS.
[2022-02-04 12:08] VITALS: BP 135/45; PULSE 62; TEMP 98.1
--- NOTE | 2022-02-04 12:57 | NUR ---
Human Capital Analyst met with patient to review PT recommendation for post acute rehab. Patient states she will not go to a SNF as she's "seen too much". SW discussed IPR with patient and she is agreeable to have referral given to IPR. DINORA contacted Marija, IPR Director and gave referral. DINORA then contacted patient's son, Edgard to provide update. 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 DINORA discussed local SNF options and also reviewed other options like IPR and Swing Bed. Edgard advised he wasn't sure how patient would feel about swing bed. DINORA advised Edgard that a referral was given to IPR. Edgard told DINORA that he would update [facility] on discharge planning. Discharge Plan: IPR Screen, patient declined SNF
--- NOTE | 2022-02-04 14:08 | NUR ---
First visit from the duck operator. No needs right now.
[2022-02-04 16:00] VITALS: BP 137/45; PULSE 67; TEMP 98.5
--- NOTE | 2022-02-04 16:15 | NUR ---
Custom Feed Mill Operator Helper gave referral to [facility].
[2022-02-04 19:52] VITALS: BP 140/45; PULSE 73; TEMP 98.9
--- NOTE | 2022-02-04 20:33 | NUR ---
TX GIVEN VIA MASK, TOLERATED WELL. PT FOUND ON 1L NC, O2 REMOVED TO ROOM AIR AT THIS TIME AND TOLERATING WELL.
--- NOTE | 2022-02-04 21:30 | NUR ---
Pt. sitting up in bed. Pt. is alert and intermittently confused. PICC to rt. upper arm patent. Pt. denies pain or other needs, call light within reach.
[2022-02-04 23:55] VITALS: BP 119/38; PULSE 53; TEMP 98.3
[2022-02-05 03:57] VITALS: BP 146/42; PULSE 67; TEMP 97.9
[2022-02-05 05:58] LABS: BASO % 0.1 % (0.0-2.0); EOS % 0.3 % (0.0-4.0); GRAN # 8.2 K/mm3 (1.4-6.5); GRAN % 80.7 % (42.2-75.2); LYMPH # 0.8 K/mm3 (1.2-3.4); LYMPH % 7.8 % (20.0-51.0); MEAN CELL VOLUME 91 fl (80.0-100.0); MEAN CORPUSCULAR HGB CONC 30 g/dl (33.0-37.0); MEAN PLATELET VOLUME 11.7 fl (7.4-10.4); MONO % 9.8 % (1.7-9.3); PLATELET COUNT 185 K/mm3 (130-400); RED BLOOD COUNT 3.09 M/mm3 (4.10-5.30); REDCELL DISTRIBUTION WIDTH-CV 16.8 % (11.5-14.5)
[2022-02-05 06:08] LABS: HEMOGLOBIN 8.5 g/dl (12.5-16.0); INR 2.1 (0.8-3.0); MEAN CORPUSCULAR HEMOGLOBIN 28 pg (27-31); PROTHROMBIN TIME 23.1 SECONDS (9.7-12.8)
[2022-02-05 06:18] LABS: CALCIUM 7.3 mg/dL (8.4-10.2); CREATININE, serum 0.64 mg/dL (0.57-1.11); MAGNESIUM 2.4 mg/dL (1.6-2.6); POTASSIUM 3.5 mmol/L (3.5-4.5)
[2022-02-05 06:56] VITALS: BP 144/43; PULSE 60; TEMP 98
--- NOTE | 2022-02-05 09:41 | NUR ---
AGREE WITH STUDENTS ASSESSMENTS THIS AM.
[2022-02-05 12:38] VITALS: BP 105/58; PULSE 56; TEMP 98.1
--- NOTE | 2022-02-05 13:24 | NUR ---
Pt resting comfortably in bed. No complaints at this time.
--- NOTE | 2022-02-05 14:36 | NUR ---
Application Packager was contacted by Sabrina at [facility] who advised they can accept patient on Wednesday. DINORA updated Hospitalist. DINORA met with patient to provide update. Patient states she isn't sure what she thinks of swing bed, but will "see how things go". DINORA contacted patient's son, Edgard who is in agreement with patient going to rehab and advised he can provide transportation to [facility] at time of discharge. Discharge Plan: [facility]
[2022-02-05 15:41] VITALS: BP 135/48; PULSE 61; TEMP 98.4
[2022-02-05 20:28] VITALS: BP 141/47; PULSE 63; TEMP 99
[2022-02-05 23:59] VITALS: BP 128/42; PULSE 62; TEMP 98
[2022-02-06 03:53] VITALS: BP 128/39; PULSE 58; TEMP 97.9
[2022-02-06 06:32] LABS: BASO % 0.1 % (0.0-2.0); EOS # 0.1 K/mm3 (0.0-0.7); EOS % 0.8 % (0.0-4.0); GRAN # 8.8 K/mm3 (1.4-6.5); GRAN % 82.5 % (42.2-75.2); LYMPH # 0.7 K/mm3 (1.2-3.4); LYMPH % 6.6 % (20.0-51.0); MEAN CELL VOLUME 91 fl (80.0-100.0); MEAN CORPUSCULAR HGB CONC 30 g/dl (33.0-37.0); MONO # 0.9 K/mm3 (0.1-0.6); MONO % 8.6 % (1.7-9.3); PLATELET COUNT 177 K/mm3 (130-400); RED BLOOD COUNT 3.26 M/mm3 (4.10-5.30); REDCELL DISTRIBUTION WIDTH-CV 17.1 % (11.5-14.5)
[2022-02-06 06:35] LABS: HEMATOCRIT 29.7 % (37.0-47.0); HEMOGLOBIN 8.9 g/dl (12.5-16.0); MEAN CORPUSCULAR HEMOGLOBIN 27 pg (27-31)
[2022-02-06 06:49] LABS: INR 2.4 (0.8-3.0); PROTHROMBIN TIME 26.5 SECONDS (9.7-12.8)
[2022-02-06 06:53] LABS: CALCIUM 7.6 mg/dL (8.4-10.2); CREATININE, serum 0.57 mg/dL (0.57-1.11)
[2022-02-06 07:41] VITALS: BP 151/45; PULSE 61; TEMP 98.1
--- NOTE | 2022-02-06 09:02 | NUR ---
Shift assessment complete. PT came and walked the pt. around the room. She was settled in the chair with chair alarm in place. Pt. eating breakfast at this time. Denies pain. No further needs at this time. Call light within reach.
--- NOTE | 2022-02-06 09:20 | NUR ---
Vance Whitehead'C per 's orders. Pt. tolerated procedure well. Will continue to monitor output.
[2022-02-06 11:22] VITALS: BP 129/39; PULSE 60; TEMP 98
--- NOTE | 2022-02-06 11:43 | NUR ---
PER NURSING AID, HARPREET BUCK. URINATED INTO BEDPAN.
[2022-02-06 15:18] VITALS: BP 133/45; PULSE 59; TEMP 98
[2022-02-06 21:06] VITALS: BP 133/47; PULSE 65; TEMP 97.9
--- NOTE | 2022-02-06 21:30 | NUR ---
PT IN BED. IS ALERT AND ORIENTED. SPEECH IMPROVED, SLIGHTLY SLOW. HAS HEARING AIDES OUT. TAKES HS MEDS CRUSHED IN APPLESAUCE, SWALLOWS THIN LIQUIDS OK. HAS LESIONS TO LABIA, HAS VOIDED SINCE MÉNDEZ REMOVED. HAVING LOOSE STOOLS, BUTTOCK EXCORIATED, BARRIER CREAM APPLIED. RT PICC INTACT, FLUSHES WELL. OXYGEN AT 2L/NC. REPOSITIONED Q2.
[2022-02-07] VITALS (7 sets, daily range): BP systolic 107–148; BP diastolic 38–64; PULSE 61–81; TEMP 97.9–99.2
--- NOTE | 2022-02-07 07:00 | NUR ---
TAKES AM MEDS WITHOUT PROBLEM. REPOSITIONED TO LEFT SIDE.
--- NOTE | 2022-02-07 11:46 | NUR ---
PT VISITING WITH LONGSHORE EQUIPMENT OPERATOR, AM MEDS GIVEN ORDERED. PT HAS BEEN INCONTINENT OF BOWEL AND BLADDER THIS SHIFT. XIOMARA CARE PROVIDED. BED BATH COMPLETE.
[2022-02-07 14:46] LABS: INR 2.7 (0.8-3.0); PROTHROMBIN TIME 30.3 SECONDS (9.7-12.8)
--- NOTE | 2022-02-07 20:30 | NUR ---
PT IN BED, IS ALERT AND ORIENTED X3. HAS RT PICC, FLUSHES WELL. TAKES HS MEDS IN PUDDING. HAS BEEN INCONTINENT OF BLADDER, XIOMARA CARES PROVIDED. WEARING OXYGEN AT 2L/NC. XIOMARA AREA EXCORIATED WITH OPEN AREA TO BUTTOCKS, BARRIER CREAM APPLIED. TURNED Q2.
[2022-02-08 03:22] VITALS: BP 123/36; PULSE 67; TEMP 98.9
--- NOTE | 2022-02-08 06:00 | NUR ---
USES BEDPAN, VOIDS ONLY. TAKES SCHEDULED AM MEDS CRUSHED WITHOUT PROBLEM.
[2022-02-08 06:09] LABS: MEAN CELL VOLUME 89 fl (80.0-100.0); MEAN CORPUSCULAR HGB CONC 31 g/dl (33.0-37.0); MEAN PLATELET VOLUME 11.4 fl (7.4-10.4); PLATELET COUNT 189 K/mm3 (130-400); RED BLOOD COUNT 3.55 M/mm3 (4.10-5.30); REDCELL DISTRIBUTION WIDTH-CV 17.1 % (11.5-14.5)
[2022-02-08 06:14] LABS: INR 2.2 (0.8-3.0); PROTHROMBIN TIME 24.2 SECONDS (9.7-12.8)
[2022-02-08 06:25] LABS: HEMATOCRIT 31.7 % (37.0-47.0); HEMOGLOBIN 9.8 g/dl (12.5-16.0); MEAN CORPUSCULAR HEMOGLOBIN 28 pg (27-31)
[2022-02-08 06:31] LABS: ALBUMIN 2.3 gm/dL (3.4-4.8); BILIRUBIN,TOTAL 0.5 mg/dL (0.2-1.2); CALCIUM 7.9 mg/dL (8.4-10.2); CREATININE, serum 0.61 mg/dL (0.57-1.11); TOTAL PROTEIN 5.4 gm/dL (6.2-8.1)
--- NOTE | 2022-02-08 06:40 | NUR ---
appears to be sleeping, bedside shift report received from SARAH Leonard
--- NOTE | 2022-02-08 07:30 | NUR ---
PAYABLE PROCESSOR in and patient had voided but incontinent care provided, full assessment completed, see interventions for further info, has small sores to vaginal area which PAYABLE PROCESSOR state look better than earlier in the week, CNAs will assist her up and into chair
[2022-02-08 08:08] VITALS: BP 120/42; PULSE 72; TEMP 98.2
--- NOTE | 2022-02-08 08:10 | NUR ---
is sitting up in chair ready for breakfast, CAB STATION ATTENDANT states she did very well getting to chair with only 1 assist
--- NOTE | 2022-02-08 08:45 | NUR ---
was c/o pain sitting in chair, assisted back to bed, sitting up in bed eating breakfast now
--- NOTE | 2022-02-08 09:35 | NUR ---
had some breakfast, now is incontinent of large amount loose brown stool, incontinent care provided
--- NOTE | 2022-02-08 11:30 | NUR ---
remains resting in bed, visiting with DIRECTOR DISTRIBUTION
[2022-02-08 11:33] VITALS: BP 128/41; PULSE 70; TEMP 97.9
--- NOTE | 2022-02-08 12:41 | NUR ---
assisted with sitting up in bed for lunch
--- NOTE | 2022-02-08 13:40 | NUR ---
c/o discomfort to her cocyx, repostioned over to right side
--- NOTE | 2022-02-08 14:42 | NUR ---
states is feeling a little nauseated after having the potassium today, provided emesis cortez and will monitor
[2022-02-08 15:24] VITALS: BP 126/47; PULSE 66; TEMP 98
--- NOTE | 2022-02-08 16:07 | NUR ---
appears to be sleeping, in bed with lights off, eyes closed, resp quiet and easy
--- NOTE | 2022-02-08 16:20 | NUR ---
requesting peanut butter and tyler crackers, this was provided, she is able to chew this and swallow without any difficulties
--- NOTE | 2022-02-08 18:48 | NUR ---
bedside shift report given to Sandra Benson
[2022-02-08 19:25] VITALS: BP 119/37; PULSE 75; TEMP 98.1
--- NOTE | 2022-02-08 22:14 | NUR ---
ALERT AND OX3. DENIES CHEST PAIN LIGHT HEAD OR DIZZY. PM MEDS GIVEN. PICC LINE TO RT UPPER ARM FLUSHES W GOOD BLOOD RETURN. MEDS CRUSHED. POC UPDATED. CALL LIGHT WI REACH.
[2022-02-09 00:07] VITALS: BP 98/74; PULSE 65; TEMP 97.7
[2022-02-09 03:47] VITALS: BP 125/45; PULSE 66; TEMP 98.3
--- NOTE | 2022-02-09 06:02 | NUR ---
RESTED THROUGH THE NIGHT WITHOUT INCIDENT. NEEDS MET.
[2022-02-09 07:01] LABS: BASO % 0.2 % (0.0-2.0); EOS # 0.1 K/mm3 (0.0-0.7); EOS % 0.6 % (0.0-4.0); LYMPH # 0.3 K/mm3 (1.2-3.4); LYMPH % 2.6 % (20.0-51.0); MEAN CELL VOLUME 88 fl (80.0-100.0); MEAN CORPUSCULAR HGB CONC 31 g/dl (33.0-37.0); MONO # 0.8 K/mm3 (0.1-0.6); MONO % 5.8 % (1.7-9.3); PLATELET COUNT 182 K/mm3 (130-400); RED BLOOD COUNT 3.52 M/mm3 (4.10-5.30); REDCELL DISTRIBUTION WIDTH-CV 17.1 % (11.5-14.5)
[2022-02-09 07:02] LABS: HEMATOCRIT 30.9 % (37.0-47.0); HEMOGLOBIN 9.5 g/dl (12.5-16.0); MEAN CORPUSCULAR HEMOGLOBIN 27 pg (27-31)
[2022-02-09 07:04] LABS: INR 2.3 (0.8-3.0); PROTHROMBIN TIME 25.4 SECONDS (9.7-12.8)
[2022-02-09] MEDS ORDERED: COZAAR 25MG25 MG/TAB PO (07:26)
[2022-02-09] MEDS ORDERED: LASIX 40MG TABL40 MG PO (07:26)
[2022-02-09] MEDS ORDERED: ALDACTONE 25MG25 M1 PO (07:26)
[2022-02-09] MEDS ORDERED: PROTONIX 40MG T40 MG PO (07:27)
[2022-02-09] MEDS ORDERED: PREDNISONE20 MG PO (07:30)
[2022-02-09 07:56] LABS: CALCIUM 8.2 mg/dL (8.4-10.2); CREATININE, serum 0.61 mg/dL (0.57-1.11); PHOSPHOROUS 2.8 mg/dL (2.3-4.7); POTASSIUM 3.3 mmol/L (3.5-4.5)
[2022-02-09 08:00] VITALS: BP 116/42; PULSE 74; TEMP 98.1
--- NOTE | 2022-02-09 10:41 | NUR ---
Scheduled medications given. Shift assessment performed. Patient C/O of pain in her back and sacral region. Patient repsitioned and given PRN tylenol. Patient currently requiring 2L of O2 via nasal cannula. PICC line flushed with good blood return. No s/s of complications. Patient denies any further pain, discomfort, or further needs at this time. Family at the bedside. Call light in reach. Fall percautions in place.
--- NOTE | 2022-02-09 11:21 | NUR ---
The clinical team is ready to discharge the patient today. DINORA notified Dewayne at [facility]. Dewayne states that they are able to accept the patient and the accepting provider is JAVIER Haines. Phone number [phone]. DINORA notified the PA. DINORA met with the patient and her caregiver, Lucrecia, and updated them on the above. [facility] states that Edgard is not able to transport today and they were under the impression that [facility] had a bus that would transport the patient. DINORA informed the patient and [facility] how [facility] does not provide transportation. Lucrecia verbalized understanding and states that she is comfortable transporting the patient. She states that she does have a portable oxygen tank for the patient to use during transport. DINORA presented and read the IM form outloud to the patient. The patient verbalized understanding and of discharge today. She gave approval to sign the form on her behalf. DINORA student provided her with a copy. DINORA then contacted the patient's son, Edgard, and updated him about the plan. He also inquired about transportation. DINORA informed him how [facility] does not provide transportation and the options of going by private vehicle or ambulance, but how ambulance is private pay. Edgard verbalized understanding and is agreeable with [facility] transporting the patient. The patient is to discharge today, 02/09, to [facility]. Transportation by private vehicle, via the patient's caregiver. No additional needs at this time.
--- NOTE | 2022-02-09 13:01 | NUR ---
Patient deemed fit for transfer to [facility] bed. Report called to ASRAH Sanchez. Patient denies any pain, discomfort, SOA, or further needs at this time. VSS. Patient A&O. Patient escorted from the building by [facility] staff. Family transporting to [place].
== END 2022-02-09 13:03 | disposition swing bed (61) | DRG 377 ==
LOC: COL.ER 11:46 → ICU 14:34 → SURG 02-03 18:27
PROVIDERS: Family Medicine; Internal Medicine; Internal Medicine Pulmonary Disease; Internal Medicine Sleep Medicine; Nurse Practitioner; Physician Assistant; ADMIT Internal Medicine
PROC: 02HV33Z Insertion of Infusion Device into Superior Vena Cava, Percutaneous Approach (ICD-10-PCS; principal; 2022-01-28)
PROC: 0DJ08ZZ Inspection of Upper Intestinal Tract, Via Natural or Artificial Opening Endoscopic (ICD-10-PCS; 2022-01-29)
PROC: 5A1945Z Respiratory Ventilation, 24-96 Consecutive Hours (ICD-10-PCS; 2022-01-30)
PROC: 0BH17EZ Insertion of Endotracheal Airway into Trachea, Via Natural or Artificial Opening (ICD-10-PCS; 2022-01-30)
DX: K25.4 Chronic or unspecified gastric ulcer with hemorrhage (principal); J96.21 Acute and chronic respiratory failure with hypoxia; I71.02 Dissection of abdominal aorta; R09.2 Respiratory arrest; N39.0 Urinary tract infection, site not specified; D62 Acute posthemorrhagic anemia; E87.3 Alkalosis; I50.32 Chronic diastolic (congestive) heart failure; J90 Pleural effusion, not elsewhere classified; I11.0 Hypertensive heart disease with heart failure; I25.10 Atherosclerotic heart disease of native coronary artery without angina pectoris; J44.9 Chronic obstructive pulmonary disease, unspecified; E78.5 Hyperlipidemia, unspecified; M06.9 Rheumatoid arthritis, unspecified; K44.9 Diaphragmatic hernia without obstruction or gangrene; I48.91 Unspecified atrial fibrillation; R79.1 Abnormal coagulation profile; I27.20 Pulmonary hypertension, unspecified; H40.9 Unspecified glaucoma; D72.829 Elevated white blood cell count, unspecified; T38.0X5A Adverse effect of glucocorticoids and synthetic analogues, initial encounter; Z99.81 Dependence on supplemental oxygen; Z79.01 Long term (current) use of anticoagulants; Z87.891 Personal history of nicotine dependence; Z95.2 Presence of prosthetic heart valve; Z79.82 Long term (current) use of aspirin
CPT/HCPCS: 99223-AI; 99232-AI; 99233-AI; 99239; A4314; A9500; C1751; C1892; C9113; J0696; J1120; J1644; J1940; J2405; J2543; J2704; J2920; J3010; J3430; J3480; J7030; J7168; J7512; P9016; Q9967